=== PATIENT | female | born 1995 | race Caucasian/White ===

== ENCOUNTER 2017-04-06 19:00 | Emergency (ER) | payer SELFPAY ==
[2017-04-06 19:10] VITALS: BP 136/77; PULSE 98; TEMP 98.6; BMI 23.0
--- NOTE | 2017-04-06 19:12 | PDOC ---
History of Present Illness - General History Source: Patient Exam Limitations: No Limitations - History of Present Illness Initial Comments: 04/06/17 19:30 The patient is a 21 year old female, with no significant past medical history, who presents to the emergency department with neck pain, shortness of breath, and numbness to the arms bilaterally since earlier this afternoon. 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 The patient reports associated shortness of breath secondary to the chest tightness. The patient reports over the past week she has noted right neck discomfort, which has not resolved. She denies any diaphoresis, palpitations, or lower extremity edema. Patient denies any history of panic attacks or anxiety. She denies any recent stressors. She reports she uses marijuana on a daily basis. She denies any fever, chills, cough , headache, or dizziness. She denies any recent travel or sick contacts. PAST MEDICAL HISTORY: no significant history PAST SURGICAL HISTORY: no significant history FAMILY HISTORY: no pertinent history SOCIAL HISTORY: Pt lives with family and is employed. Pt uses [employer] on a daily basis. No ETOH or tobacco use. MEDICATIONS: reviewed ALLERGIES: As per nursing notes General: No fevers or chills, no weakness, no weight loss HEENT: No change in vision. No sore throat. No ear pain CardioVascular: Yes chest tightness, shortness of breath. No diaphoresis or palpitations Respiratory: No cough, or wheezing. Gastrointestinal: No nausea, vomiting, diarrhea or constipation, No rectal bleeding Genitourinary: No dysuria, hematuria, or frequency Musculoskeletal: Yes right neck pain, arm numbness. No joint or muscle pain or swelling Neurologic: No headache, vertigo, dizziness or loss of consciousness Psychiatric: No depression Skin: No rashes or easy bruising Endocrine: No increased thirst or abnormal weight change Allergic: no skin or latex allergy All other systems reviewed and normal General: Well-nourished well-developed individual, no acute distress HEENT: Throat: Normal, tonsils normal, no erythema or exudate Neck: Palpable spasm of the right lateral neck muscles. Supple, no meningeal signs, no lymphadenopathy Eyes: Pupils equal reactive and round, extraocular motion intact Chest: Nontender to palpation Cardiac: S1-S2 normal, regular rate and rhythm, no murmurs rubs or gallops Respiratory: Lungs clear to auscultation bilateral Abdomen: Soft, nondistended, normal bowel sounds, nontender to palpation diffusely Extremities: Warm, dry, no cyanosis, clubbing, or edema Skin: No rashes Neuro: Alert and oriented x3, nonfocal exam, grossly intact, normal gait Psych: Normal mood and affect <Kayden Butts - Last Filed: 04/06/17 19:48> - General History Source: Patient Exam Limitations: No Limitations - History of Present Illness Initial Comments: 04/06/17 20:00 A portion of this note was documented by scribe services under my direction. I have reviewed the details of the note, within reason, and agree with the documentation. The case summary and management plan written by me. This is a 21-year-old female who comes in complaining of symptoms that are consistent with an anxiety/panic attack. Patient denies history of similar symptoms in the past. However patient while driving to see evening developed a sensation of tightness in her chest and shortness of breath and some numbness and tingling in her hands. By the time I saw patient she was feeling better however was still complaining of shortness of breath. Patient's exam was completely normal. Patient smokes marijuana on a daily basis. Discussed with patient the possibility that her daily marijuana use could be contributing to her anxiety/ panic symptoms. Discussed with patient considering stopping marijuana use if symptoms occur again and are happening more frequently. Also recommended that patient follow up with a therapist if symptoms are recurrent. Patient was given Xanax here in the emergency room with improvement in her symptoms. <Darvin Ramirez I - Last Filed: 04/06/17 20:06> - General Chief Complaint: Psychiatric Stated Complaint: PANIC ATTACK Time Seen by Provider: 04/06/17 19:12 Past History <Kayden Butts - Last Filed: 04/06/17 19:48> - Immunization History Immunization Up to Date: Yes - Suicide/Smoking/Psychosocial Hx Smoking History: Never smoked Hx Alcohol Use: No Drug/Substance Use Hx: Yes (MARIJUANA DAILY) Substance Use Type: Marijuana <Darvin Ramirez I - Last Filed: 04/06/17 20:06> - Past Medical History Allergies/Adverse Reactions: Allergies Allergy/AdvReac Type Severity Reaction Status Date / Time No Known Allergies Allergy Verified 12/02/15 08:29 Home Medications: Ambulatory Orders NK [No Known Home Medication] 04/06/17 *Physical Exam - Vital Signs Last Vital Signs Temp Pulse Resp BP Pulse Ox 98.6 F 98 H 24 136/77 100 04/06/17 19:01 04/06/17 19:01 04/06/17 19:01 04/06/17 19:01 04/06/17 19:01 <Kayden Butts - Last Filed: 04/06/17 19:48> - Vital Signs Last Vital Signs Temp Pulse Resp BP Pulse Ox 98.6 F 98 H 24 136/77 100 04/06/17 19:01 04/06/17 19:01 04/06/17 19:01 04/06/17 19:01 04/06/17 19:01 <Darvin Ramirez I - Last Filed: 04/06/17 20:06> *DC/Admit/Observation/Transfer - Attestations Scribe Attestion: 04/06/17 19:30 Documentation prepared by Kayden Butts, acting as electromedical equipment technician for Darvin Ramirez MD. <Kayden Butts - Last Filed: 04/06/17 19:48> - Discharge Dispostion Admit: No <Darvin Ramirez I - Last Filed: 04/06/17 20:06> Diagnosis at time of Disposition: Panic attack - Discharge Dispostion Disposition: HOME Condition at time of disposition: Good - Patient Instructions Printed Discharge Instructions: Panic Disorder Additional Instructions: If symptoms recur and become more frequent or persistent is important that you follow-up with a therapist. Also consider stopping your marijuana use as the marijuana may be contributing to her symptoms. Return to the emergency department immediately with ANY new, persistent or worsening symptoms. Continue any medications as previously prescribed by your physician. You should follow up with your primary doctor as soon as possible regarding today's emergency department visit. . Please make sure your doctor reviews the results of your emergency evaluation. Thank you for coming to the Emergency Department today for your care. It was a pleasure to see you today. Please note that your evaluation is INCOMPLETE until you follow-up with your doctor.
[2017-04-06] MEDS ORDERED: ALPRAZolam 0.25 MG TABLET PO ONE (19:24)
[2017-04-06] MEDS ORDERED: IBUPROFEN 400 MG TABLET (FP) PO ONE ×2 (19:25→19:40)
[2017-04-06] MEDS ORDERED: ALPRAZolam 0.25 MG TABLET ONE (19:41)
== END 2017-04-06 20:23 | disposition home or self-care (01) ==
LOC: FER 19:00
DX: F41.0 Panic disorder [episodic paroxysmal anxiety] (principal)
CPT/HCPCS: 99282-25

== ENCOUNTER 2018-08-01 12:04 | Emergency (ER) | payer SELFPAY | END 2018-08-01 13:00 | disposition home or self-care (01) | LOC: JERFT 12:04 ==

== ENCOUNTER 2018-12-22 11:10 | Emergency (ER) | payer SELFPAY ==
[2018-12-22 11:17] VITALS: BP 125/70; PULSE 75; TEMP 98.2; BMI 23.0
[2018-12-22] MEDS ORDERED: IBUPROFEN 400 MG TABLET (FP) PO ONE ×2 (12:09→12:14)
--- NOTE | 2018-12-22 12:12 | PDOC ---
History of Present Illness - General Chief Complaint: Ingrown toenail Stated Complaint: UPLIFTED NAIL Time Seen by Provider: 12/22/18 12:01 History Source: Patient Exam Limitations: No Limitations - History of Present Illness Initial Comments: 12/22/18 12:12 caught right 3rd fingernail/ acrylic nail tips in car door and avulsed nail. Is still under epinycheum and no active bleed 12/22/18 12:13 Timing/Duration: unsure Severity: mild, moderate Associated Symptoms: reports: denies symptoms Past History - Travel Traveled outside of the country in the last 30 days: No Close contact w/someone who was outside of country & ill: No - Past Medical History Allergies/Adverse Reactions: Allergies Allergy/AdvReac Type Severity Reaction Status Date / Time No Known Allergies Allergy Verified 12/22/18 11:15 Home Medications: Ambulatory Orders NK [No Known Home Medication] 12/22/18 COPD: No - Immunization History Immunization Up to Date: Yes - Suicide/Smoking/Psychosocial Hx Smoking History: Never smoked Information on smoking cessation initiated: No Hx Alcohol Use: No Drug/Substance Use Hx: No Substance Use Type: Marijuana Review of Systems - Review of Systems Able to Perform ROS?: Yes Is the patient limited Sami proficient: Yes Constitutional: Yes: See HPI. No: Symptoms Reported, Fever, Malaise HEENTM: Yes: See HPI. No: Symptoms Reported Musculoskeletal: Yes: Symptoms Reported, See HPI Integumentary: Yes: See HPI, Bruising, Other (third right finger nail) *Physical Exam - Vital Signs Last Vital Signs Temp Pulse Resp BP Pulse Ox 98.2 F 75 18 125/70 99 12/22/18 11:15 12/22/18 11:15 12/22/18 11:15 12/22/18 11:15 12/22/18 11:15 - Physical Exam General Appearance: Yes: Appropriately Dressed, Apparent Distress, Mild Distress HEENT: positive: ZHEN, Normal ENT Inspection, TMs Normal, Pharynx Normal Neck: negative: Tender Respiratory/Chest: positive: Lungs Clear Extremity: positive: Normal Capillary Refill, Normal Range of Motion (right thirdfingernail acrylic tip loosened however remains under eponychia. has full range of motion of finger, no true tenderness to distal phalanx. Sensation intact butsensationally painful. ). 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 NML intact, Fully Oriented, Alert, Normal Response Medical Decision Making - Medical Decision Making 12/22/18 12:21 wound clean, Band-Aid used to anchor fingernail and finger splint applied *DC/Admit/Observation/Transfer Diagnosis at time of Disposition: Fingernail avulsion, partial Qualifiers: Encounter type: initial encounter Qualified Code(s): S61.309A - Unspecified open wound of unspecified finger with damage to nail, initial encounter - Discharge Dispostion Disposition: HOME Condition at time of disposition: Stable Decision to Admit order: No - Referrals - Patient Instructions Printed Discharge Instructions: DI for Nail Avulsion Injury Additional Instructions: keep finger clean and dry Continue using Band-Aids to anchor nail tip for another few days when painand swelling resolves, seek attention at nail salon to have folks nail removed to evaluate for other damage May use ibuprofen 2200 milligrams tablets for pain relief May use one half to one tablet of Percocet for severe pain understanding will make dizzy and sleepy - Post Discharge Activity
== END 2018-12-22 12:27 | disposition home or self-care (01) ==
LOC: JERFT 11:10 → JER 11:10 → JERFT 12:27
PROC: 2W3JX1Z Immobilization of Right Finger using Splint (ICD-10-PCS; principal; 2018-12-22)
DX: S61.302A Unspecified open wound of right middle finger with damage to nail, initial encounter (principal); W23.0XXA Caught, crushed, jammed, or pinched between moving objects, initial encounter; Y93.89 Activity, other specified; Y92.89 Other specified places as the place of occurrence of the external cause
CPT/HCPCS: 99281-25

== ENCOUNTER 2020-10-06 08:07 | Day surgery (SDC) | payer OTHER ==
[2020-10-06] MEDS ORDERED: ACETAMINOPHEN 1000 MG/100 ML VIAL (NON FORMULARY) IVPB ONE (08:17)
[2020-10-06] MEDS ORDERED: SODIUM CHLORIDE 1,000 ML IV STA ×2 (08:17→10:48)
[2020-10-06 08:19] VITALS: BMI 25.7
[2020-10-06] MEDS ORDERED: ACETAMINOPHEN INJECTION 100 ML IVPB ONE (08:46)
[2020-10-06] MEDS ORDERED: KETOROLAC TROMETHAMINE 30 MG/1 ML VIAL IVPUSH ONE ×2 (09:21→10:10)
[2020-10-06 09:36] LABS: BASO % 0.2 % (0-2.0); HEMATOCRIT 35.5 % (32.4-45.2); LYMPH % 18.2 % (8-40); MCHC 33.7 g/dl (32.0-36.0); MEAN CELL VOLUME 94.9 fl (80-96); MEAN PLT VOLUME 10.1 fl (7.5-11.1); MONO % 4.3 % (3.8-10.2); NEUT % 75.3 % (42.8-82.8); PLATELET COUNT 193 K/MM3 (134-434); RBC 3.74 M/mm3 (3.60-5.2); RDW 13.8 % (11.6-15.6); WHITE BLOOD COUNT 7.4 K/mm3 (4.0-10.0)
[2020-10-06 09:48] LABS: PROTHROMBIN TIME (PATIENT) 12.3 SEC (9.7-13.0)
[2020-10-06 09:50] LABS: ACTIVATED PTT 28.3 SECONDS (25.2-36.5)
[2020-10-06] MEDS ORDERED: KETOROLAC TROMETHAMINE 15 MG/ML VIAL ONE (10:10)
[2020-10-06] MEDS ORDERED: morphine CARPU-JECT 2 MG/1 ML DISP.SYRIN IVPUSH ONE ×2 (10:47)
[2020-10-06] MEDS ORDERED: morphine SULFATE 4 MG/ML VIAL ONE (10:48)
[2020-10-06 12:05] LABS: ALBUMIN 3.7 g/dl (3.4-5.0); BLOOD UREA NITROGEN 14.3 mg/dL (7-18)
[2020-10-06 12:07] LABS: CREATININE 0.6 mg/dL (0.55-1.3)
[2020-10-06 12:09] LABS: BILIRUBIN,TOTAL 0.2 mg/dL (0.2-1)
[2020-10-06] MEDS ORDERED: SODIUM CHLORIDE IV SCH (13:45)
[2020-10-06] MEDS ORDERED: OXYTOCIN IV SCH (13:45)
[2020-10-06 14:55] LABS: BASO % 0.2 % (0-2.0); EOS % 0.2 % (0-4.5); HEMATOCRIT 28.1 % (32.4-45.2); HEMOGLOBIN 9.4 GM/dL (10.7-15.3); LYMPH % 9.6 % (8-40); MCHC 33.5 g/dl (32.0-36.0); MEAN CELL VOLUME 95.5 fl (80-96); MONO % 2.5 % (3.8-10.2); NEUT % 87.5 % (42.8-82.8); PLATELET COUNT 178 K/MM3 (134-434); RBC 2.95 M/mm3 (3.60-5.2); RDW 13.6 % (11.6-15.6)
[2020-10-06] MEDS ORDERED: ceFAZolin 2 GRAM PREMIX BAG IVPB ONE (15:27)
[2020-10-06] MEDS ORDERED: OXYTOCIN 20 UNITS in 0.9% NS 20 UNIT/1,000 ML INFUS.BAG IV SCH (19:30)
[2020-10-06] MEDS ORDERED: IBUPROFEN 600 MG TABLET (FP) PO PRN (20:39)
[2020-10-07 08:36] LABS: BASO % 0.3 % (0-2.0); EOS % 2.1 % (0-4.5); HEMATOCRIT 21.9 % (32.4-45.2); HEMOGLOBIN 7.6 GM/dL (10.7-15.3); LYMPH % 27.9 % (8-40); MCH 32.6 pg (25.7-33.7); MCHC 34.5 g/dl (32.0-36.0); MEAN CELL VOLUME 94.4 fl (80-96); MEAN PLT VOLUME 9.3 fl (7.5-11.1); MONO % 5.2 % (3.8-10.2); NEUT % 64.5 % (42.8-82.8); PLATELET COUNT 152 K/MM3 (134-434); RBC 2.32 M/mm3 (3.60-5.2); RDW 13.5 % (11.6-15.6)
[2020-10-07] MEDS ORDERED: PROPOFOL 20 ML ONE ×3 (09:01)
[2020-10-07] MEDS ORDERED: MIDAZOLAM HCL 2 MG/2 ML SINGLE DOSE VIAL ONE (09:01)
[2020-10-07] MEDS ORDERED: oxyCODONE HCL 5 MG TABLET PO PRN ×3 (09:32→09:40)
[2020-10-07] MEDS ORDERED: IBUPROFEN 800 MG/8 ML IJ IVPB PRN ×2 (09:32→09:40)
[2020-10-07] MEDS ORDERED: ONDANSETRON 4 MG/2 ML VIAL IVPUSH PRN ×3 (09:32→09:40)
[2020-10-07] MEDS ORDERED: IBUPROFEN 600 MG TABLET (FP) PO PRN ×2 (09:32→09:40)
[2020-10-07] MEDS ORDERED: LACTATED RINGERS SOLUTION 1,000 ML IV SCH (09:45)
[2020-10-07] MEDS ORDERED: ELECTROLYTE-148 SOLN 1,000 ML IV SCH ×2 (09:45)
[2020-10-07 12:19] VITALS: BP 100/65; PULSE 95; TEMP 98.7
== END 2020-10-07 12:50 | disposition home or self-care (01) ==
LOC: JER 08:07 → UNDOADMIN 15:29 → JERBED 15:29 → JASUSAT 15:29 → JERBED 16:46 → J3W 16:46 → JASUSAT 10-07 12:50
PROVIDERS: ATTEND Obstetrics & Gynecology
PROC: 10D17ZZ Extraction of Products of Conception, Retained, Via Natural or Artificial Opening (ICD-10-PCS; principal; 2020-10-06)
DX: O03.4 Incomplete spontaneous abortion without complication (principal)
CPT/HCPCS: 36415; 76817-TC; 80053; 84702; 84703; 85025; 85610; 85730; 86850; 86900; 86901; 88305-TC; 94760; 99285-25; C9803; U0003; U0005

== ENCOUNTER 2021-04-26 12:52 | Inpatient (IN) | payer SELFPAY ==
[2021-04-26] MEDS ORDERED: morphine CARPU-JECT 2 MG/1 ML DISP.SYRIN IVPUSH ONE (13:25)
[2021-04-26] MEDS ORDERED: SODIUM CHLORIDE 1,000 ML IV ONE (13:25)
[2021-04-26] MEDS ORDERED: ONDANSETRON 4 MG/2 ML VIAL IVPB ONE (13:39)
[2021-04-26] MEDS ORDERED: ONDANSETRON 4 MG/2 ML VIAL ONE (13:41)
[2021-04-26] MEDS ORDERED: morphine SULFATE 4 MG/ML VIAL ONE ×2 (13:47→17:18)
[2021-04-26 14:12] LABS: ALBUMIN 3.9 g/dl (3.4-5.0); BILIRUBIN,TOTAL 0.5 mg/dl (0.2-1); CALCIUM 8.5 mg/dl (8.5-10); CREATININE 0.6 mg/dl (0.55-1.3); TOT PROT 7.6 g/dl (6.4-8.2)
[2021-04-26 14:16] LABS: BASO % 1.2 % (0-2.0); EOS % 0.3 % (0-4.5); HEMOGLOBIN 12.1 GM/dl (10.7-15.3); MCH 29.7 pg (25.7-33.7); MCHC 32.7 g/dl (32.0-36.0); MEAN CELL VOLUME 90.9 fl (80-96); MEAN PLT VOLUME 10.2 fl (7.5-11.1); MONO % 3.5 % (3.8-10.2); PLATELET COUNT 208 10^3/uL (134-434); RBC 4.07 M/mm3 (3.60-5.2); RDW 15.4 % (11.6-15.6); WHITE BLOOD COUNT 10.6 K/mm3 (4.0-10.8)
[2021-04-26 15:03] LABS: HCG,QUALITATIVE URINE Negative
[2021-04-26] MEDS ORDERED: PIPERACILLIN/TAZOB 4.5 GM 4.5 GM in DEXTROSE 5%-WATER 100 ML IVPB ONE (15:59)
[2021-04-26] MEDS ORDERED: PIPERACILLIN/TAZOBACTAM 4.5 GM VIAL IVPB ONE (16:13)
[2021-04-26] MEDS ORDERED: LACTATED RINGERS SOLUTION 1,000 ML/1,000 ML INFUS.BAG IV SCH (16:15)
[2021-04-26] MEDS: morphine SULFATE 4 MG/ML VIAL IVPUSH PRN (17:23)
[2021-04-26] MEDS: LACTATED RINGERS SOLUTION 1,000 ML/1,000 ML INFUS.BAG IV SCH (18:47)
[2021-04-26] MEDS: ACETAMINOPHEN 1000 MG/100 ML VIAL IVPB PRN (18:47)
[2021-04-26] MEDS ORDERED: ACETAMINOPHEN INJECTION 100 ML IVPB ONE (18:49)
[2021-04-26 20:24] VITALS: BMI 31.8
[2021-04-26] MEDS ORDERED: PIPERACILLIN/TAZOBACTAM 3.375 GM VIAL IVPB ONE (22:27)
[2021-04-26] MEDS ORDERED: DEXTROSE 5%-WATER - 50 ML IVPB ONE (22:27)
[2021-04-26] MEDS: PIPERACILLIN/TAZOB 3.375 GM 3.375 GM in DEXTROSE 5%-WATER - 50 ML IVPB SCH (22:28)
[2021-04-27] MEDS: PIPERACILLIN/TAZOB 3.375 GM 3.375 GM in DEXTROSE 5%-WATER - 50 ML IVPB SCH ×5 (06:52→23:00)
[2021-04-27] MEDS ORDERED: PIPERACILLIN/TAZOBACTAM 3.375 GM VIAL IVPB ONE ×3 (06:56→21:06)
[2021-04-27] MEDS ORDERED: DEXTROSE 5%-WATER - 50 ML IVPB ONE ×3 (06:57→21:06)
[2021-04-27 09:04] LABS: HEMATOCRIT 33.2 % (32.4-45.2); HEMOGLOBIN 11.1 GM/dl (10.7-15.3); MCH 29.9 pg (25.7-33.7); MCHC 33.4 g/dl (32.0-36.0); MEAN CELL VOLUME 89.6 fl (80-96); MEAN PLT VOLUME 9.9 fl (7.5-11.1); PLATELET COUNT 162 10^3/uL (134-434); RBC 3.71 M/mm3 (3.60-5.2); WHITE BLOOD COUNT 11.1 K/mm3 (4.0-10.8)
[2021-04-27 09:08] LABS: ALBUMIN 3.1 g/dl (3.4-5.0); BILIRUBIN,TOTAL 0.9 mg/dl (0.2-1); CALCIUM 8.1 mg/dl (8.5-10); CREATININE 0.6 mg/dl (0.55-1.3); MAGNESIUM 1.9 mg/dL (1.8-2.4); PHOSPHOROUS 2.3 mg/dl (2.5-4.9); TOT PROT 6.4 g/dl (6.4-8.2)
[2021-04-27] MEDS: ACETAMINOPHEN 1000 MG/100 ML VIAL IVPB PRN (12:10)
[2021-04-27] MEDS ORDERED: PIPERACILLIN/TAZOB 3.375 GM 3.375 GM in DEXTROSE 5%-WATER - 50 ML IVPB SCH (15:00)
[2021-04-27] MEDS ORDERED: ONDANSETRON 4 MG/2 ML VIAL IVPUSH PRN (21:08)
[2021-04-27] MEDS: morphine SULFATE 4 MG/ML VIAL IVPUSH PRN ×2 (21:34→22:00)
[2021-04-28] MEDS ORDERED: PIPERACILLIN/TAZOBACTAM 3.375 GM VIAL IVPB ONE ×3 (06:05→21:23)
[2021-04-28] MEDS ORDERED: DEXTROSE 5%-WATER - 50 ML IVPB ONE ×3 (06:05→21:23)
[2021-04-28] MEDS: PIPERACILLIN/TAZOB 3.375 GM 3.375 GM in DEXTROSE 5%-WATER - 50 ML IVPB SCH ×3 (06:11→22:12)
[2021-04-28 09:16] LABS: BASO % 0.8 % (0-2.0); EOS % 1.2 % (0-4.5); HEMOGLOBIN 11.1 GM/dl (10.7-15.3); LYMPH % 15.5 % (8-40); MCH 29.8 pg (25.7-33.7); MCHC 32.8 g/dl (32.0-36.0); MEAN CELL VOLUME 90.9 fl (80-96); MEAN PLT VOLUME 10.3 fl (7.5-11.1); MONO % 5.5 % (3.8-10.2); PLATELET COUNT 194 10^3/uL (134-434); RBC 3.73 M/mm3 (3.60-5.2); RDW 15.1 % (11.6-15.6); WHITE BLOOD COUNT 9.4 K/mm3 (4.0-10.8)
[2021-04-28 09:26] LABS: ALBUMIN 3.2 g/dl (3.4-5.0); BILIRUBIN,TOTAL 0.6 mg/dl (0.2-1); CALCIUM 8.4 mg/dl (8.5-10); CREATININE 0.6 mg/dl (0.55-1.3); TOT PROT 6.7 g/dl (6.4-8.2)
[2021-04-28] MEDS: LACTOBACILLUS ACIDOPHILUS 1 TABLET PO SCH (10:28)
[2021-04-28] MEDS: ENOXAPARIN NA (PORCINE) 40 MG/0.4 ML DISP.SYRIN SQ SCH (10:29)
[2021-04-28] MEDS ORDERED: LACTATED RINGERS SOLUTION 1,000 ML/1,000 ML INFUS.BAG IV SCH (11:31)
[2021-04-28] MEDS: LACTATED RINGERS SOLUTION 1,000 ML/1,000 ML INFUS.BAG IV SCH (16:04)
[2021-04-28] MEDS: morphine SULFATE 4 MG/ML VIAL IVPUSH PRN (19:33)
[2021-04-29] MEDS ORDERED: MELATONIN 5 MG TABLETS PO ONE (00:13)
[2021-04-29] MEDS ORDERED: DEXTROSE 5%-WATER - 50 ML IVPB ONE (06:38)
[2021-04-29] MEDS ORDERED: PIPERACILLIN/TAZOBACTAM 3.375 GM VIAL IVPB ONE (06:38)
[2021-04-29] MEDS: PIPERACILLIN/TAZOB 3.375 GM 3.375 GM in DEXTROSE 5%-WATER - 50 ML IVPB SCH (06:47)
[2021-04-29 09:38] VITALS: TEMP 98.8
[2021-04-29] MEDS: ENOXAPARIN NA (PORCINE) 40 MG/0.4 ML DISP.SYRIN SQ SCH (10:19)
[2021-04-29] MEDS: LACTOBACILLUS ACIDOPHILUS 1 TABLET PO SCH (10:19)
[2021-04-29 13:54] VITALS: BP 127/64; PULSE 101
== END 2021-04-29 14:15 | disposition home or self-care (01) ==
LOC: FER 12:52 → FM/S 20:06
PROVIDERS: ADMIT Internal Medicine; ATTEND Nurse Practitioner Acute Care
DX: K57.92 Diverticulitis of intestine, part unspecified, without perforation or abscess without bleeding (principal); K92.89 Other specified diseases of the digestive system
CPT/HCPCS: 36415; 74177-TC; 80053; 81003; 83735; 84100; 84703; 85025; 85027; 86850; 86900; 86901; 87040; 87086; 99285-25; C9803; J0131; U0003; U0005